=== PATIENT | male | born 1970 | race Caucasian/White ===

== ENCOUNTER 2017-08-27 01:04 | Emergency (ER) | payer OTHER ==
[~2017-08-27] VITALS: Ht 172.7 cm; Wt 91.2 kg
[2017-08-27 01:10] VITALS: Ht 172.7 cm; Wt 91.2 kg
[2017-08-27 05:07] VITALS: BP 135/73
== END 2017-08-27 05:07 | disposition home or self-care (01) ==
LOC: ED 01:04
DX: J06.9 Acute upper respiratory infection, unspecified (principal); B34.9 Viral infection, unspecified; J98.01 Acute bronchospasm